=== PATIENT | female | born 1995 | race Caucasian/White ===

== ENCOUNTER → 2016-10-13 | Outpatient (CLI) | payer MEDICAID ==
--- NOTE | ~2016-10-13 | PUL ---
PATIENT'S NAME: AFIA MON [facility] AGE: 21 Y [address] ROOM: [place] [id number] LOCATION: [facility] ADMIT DATE: 10/13/2016 Pulmonary DISCHARGE DATE: FAMILY PHYSICIAN: Rahel Townsend MD ATTENDING PHYSICIAN: DIANE FONG NAME OF PROCEDURE: Pulmonary Function Test with Methacholine Challenge DATE OF PROCEDURE: October 13, 2016 TECH: HARITHA López REASON FOR EXAM: Chronic cough RESULTS: 1. FVC was 4.17 liters which is 100% of predicted and normal, FEV1 was 2.95 liters which is 82% of predicted and normal, and FEV1/FVC was 71% and low for patient's demographics. The flow volume curve reveals some airflow limitation especially at low lung volumes. After bronchodilator administration FVC decreased to 3.96 liters and FEV1 increased to 2.98 liters which is a 1% increase. FEV1/FVC was 75%. 2. DLCO was 22.6 with an adjusted DLCO of 22.1 which is 68% of predicted and low. 3. Total lung capacity was 5.29 liters which is 91% of predicted and normal and residual volume was 1.2 liters which is 64% of predicted and normal. 4. The patient was administered increasingly higher concentrations of methacholine solution. At the level 5/5 she had a 34% drop in her FEV1, and also complained of shortness of breath and chest tightness. PHYSICIAN INTERPRETATION: The patient has mild airflow limitation without a significant bronchodilator response. Her diffusion capacity is mildly low. There is no evidence of restrictive lung disease. She has a positive methacholine challenge test at the highest allowed concentration of methacholine solution. Clinical correlation is advised. MD BEHZAD URBINA/chante /[id number] dtt: 10/15/16 1324 , DIANE FONG dtd: 10/15/16 1109
== END | disposition disaster alternative care site (69) ==
LOC: GRTH 12:34
DX: R05 Cough (principal)
CPT/HCPCS: J7674

== ENCOUNTER → 2016-11-24 | Outpatient (CLI) | payer MEDICAID ==
--- NOTE | ~2016-11-24 | PUL ---
PATIENT'S NAME: AFIA MON [facility] AGE: 21 Y [address] ROOM: [place] [id number] LOCATION: [facility] ADMIT DATE: 11/24/2016 Pulmonary DISCHARGE DATE: FAMILY PHYSICIAN: Rahel Townsend MD ATTENDING PHYSICIAN: DIANE FONG NAME OF PROCEDURE: This is a sleep study PROCEDURE DATE: 11/24/16 TECH: MARILYNN Tidwell TEST #: [facility] [place] [facility] [place] [phone] TECHNICAL PARAMETERS: The patient was studied using International 10/20 measuring system. While the patient was studied, there was continuous monitoring of EEG (8 leads), EOG (2 leads), EKG (3 leads), submental EMG (3 leads), tibial (4 leads), respiratory inductive plethysmography (RIP) for thoracic and abdominal effort, oral and nasal airflow with a thermocouple and pressure transducer, and oximetry. The mechanical facilities technician also performed visual and auditory observations noting things like body position, patient's status, breath sounds, artifact, snoring level and patient comments. Continuous sound was monitored using a 2-way speaker system and video monitoring was performed using an infrared camera. Review of the entire study was performed epoch by epoch utilizing a single epoch and multiple epoch capability sleep system. MEDICAL HISTORY: Patient is a 21-year-old overweight woman with daytime sleepiness and snoring. SLEEP STAGE SUMMARY: The patient was studied for 467 minutes of which she slept 457 minutes. She fell asleep in 7 minutes and slept for 98% of the night. Sleep architecture was normal. RESPIRATORY SUMMARY: Oxygen saturations ranged from 85-95% and were below 88% for fewer than 5 minutes. There were 4 apneas and 11 hypopneas for an apnea/hypopnea index normal at 2 events per hour. EKG SUMMARY: Average heart rate during sleep 88 beats per minute. LEG MOVEMENT SUMMARY: Occasional periodic limb movements were noted. Overall limb movement index was 37 events per hour. Limb movement with arousal was less than 1 event per hour. IMPRESSION: Relatively normal sleep study. PATIENT'S NAME: AFIA MON [facility] AGE: 21 Y [address] ROOM: [place] [id number] LOCATION: [facility] ADMIT DATE: 11/24/2016 Pulmonary DISCHARGE DATE: FAMILY PHYSICIAN: Rahel Townsend MD ATTENDING PHYSICIAN: DIANE FONG PLAN: Would consider evaluating for other causes of excessive sleepiness in this age group including narcolepsy. Patient will receive results from the ordering provider. MD CAROLYN AMADO/ /[id number] dtt: 12/01/16 0827 , Joshua Chacko. dtd: 11/27/16 1348
== END | disposition disaster alternative care site (69) ==
LOC: GSLP 20:38
DX: G47.19 Other hypersomnia (principal); Z86.39 Personal history of other endocrine, nutritional and metabolic disease

== ENCOUNTER → 2016-12-10 | Outpatient (CLI) | payer MEDICAID | END | disposition disaster alternative care site (69) | LOC: GRAD 08:52 | DX: J31.0 Chronic rhinitis (principal) ==